=== PATIENT | male | born 1960 | race Caucasian/White ===

== ENCOUNTER 2017-10-17 11:13 | Emergency (ER) | payer SELFPAY ==
[2017-10-17 11:45] LABS: BILIRUBIN,URINE NEGATIVE (NEG); CLARITY,URINE CLEAR; COLOR,URINE YELLOW; GLUCOSE,URINE 100 mg/dL (NEG); NITRITE,URINE NEGATIVE (NEG); PH,URINE 6.5; PROTEIN,URINE NEGATIVE (NEG-TRACE); UROBILINOGEN,URINE 0.2 mg/dL (0.2 mg/dL)
[2017-10-17] MEDS: MAGNESIUM CITRATE 296 ML SOLUTION. PO (11:53)
[2017-10-17] MEDS: SODIUM PHOSPHATES 19/7GM 133 ML ENEMA. PR (11:54)
[2017-10-17 11:59] LABS: BACTERIA,URINE 0 /HPF (0-FEW); RBC,URINE 0 /HPF (0-2); SQUAMOUS EPITHELIAL CELL,UR OCC /LPF; WBC,URINE 0 /HPF (0-4)
[2017-10-17] MEDS ORDERED: CONTRAST GIVEN MC (12:30)
[2017-10-17] MEDS: IOHEXOL 300 MG/ML 100ML VIAL. IV (12:30)
[2017-10-17 13:09] LABS: AGAP ISTAT 13 mmol/L (6-14); BUN ISTAT 15 mg/dL (8-26); CHLORIDE ISTAT 103 mmol/L (98-110); CREATININE ISTAT 1.2 mg/dL (0.5-1.4); GLUCOSE ISTAT 94 mg/dL (70-99); HEMATOCRIT ISTAT 42 % (37-52); HEMOGLOBIN ISTAT 14.3 g/dL (14-18); ION CA ISTAT 1.06 mmol/L (1.13-1.32); POTASSIUM ISTAT 3.9 mmol/L (3.5-5.0); SODIUM ISTAT 138 mmol/L (135-145); TOT CO2 ISTAT 27 mmol/L (23-32)
== END 2017-10-17 15:05 | disposition home or self-care (01) ==
LOC: ER 11:13
DX: K59.00 Constipation, unspecified (principal); F15.10 Other stimulant abuse, uncomplicated; F12.10 Cannabis abuse, uncomplicated
CPT/HCPCS: 74177; 80047; 81001; 99285-25; Q9967